=== PATIENT | female | born 1950 | race Caucasian/White ===

== ENCOUNTER 2017-07-16 19:53 | Emergency (ER) | payer MEDICARE, MEDICAID ==
[~2017-07-16] VITALS: Ht 165.1 cm; Wt 68.9 kg
[~2017-07-16 19:53] MED LIST: ASPI81TA31 PO; ATEN50TA PO; Acetaminophen PO; FENO145T PO; GLUC100017 PO; IBUP-1955 PO; LORA0.5T48 PO; MELO15TA13 PO; PRAV20TA4 PO
[2017-07-16] MEDS ORDERED: IBUPROFEN 800 MG TABLET PO ONE (21:45)
[2017-07-16] MEDS ORDERED: IBUPROFEN 800 MG TABLET ONE (21:59)
--- NOTE | 2017-07-16 23:04 | NUR ---
Patient discharged to home in stable conditon. Written and verbal after care instructions given. Patient verbalizes understanding of instructions.
== END 2017-07-16 23:05 | disposition home or self-care (01) ==
LOC: ER 19:53
DX: S39.012A Strain of muscle, fascia and tendon of lower back, initial encounter (principal); S13.4XXA Sprain of ligaments of cervical spine, initial encounter; I10 Essential (primary) hypertension; Z79.82 Long term (current) use of aspirin; V49.50XA Passenger injured in collision with unspecified motor vehicles in traffic accident, initial encounter; Y93.89 Activity, other specified; Y92.413 State road as the place of occurrence of the external cause; Y99.9 Unspecified external cause status
CPT/HCPCS: 70450; 72125; 72131; 99284; A4663

== ENCOUNTER 2019-01-15 12:28 | Emergency (ER) | payer MEDICARE, OTHER ==
[~2019-01-15] VITALS: Ht 165.1 cm; Wt 72.6 kg
--- NOTE | 2019-01-15 12:57 | NUR ---
Dr Jones into eval patient
[2019-01-15 13:53] VITALS: BP 118/90
--- NOTE | 2019-01-15 13:55 | NUR ---
Patient discharged to home in stable conditon with daughter taking patient home. Written and verbal after care instructions given. Patient verbalizes understanding of instructions. Walked out of ER with no distress noted
== END 2019-01-15 13:59 | disposition home or self-care (01) ==
LOC: ER 12:28
DX: J40 Bronchitis, not specified as acute or chronic (principal); I10 Essential (primary) hypertension; Z79.1 Long term (current) use of non-steroidal anti-inflammatories (NSAID); Z79.899 Other long term (current) drug therapy
CPT/HCPCS: 71045; 93005; A4663

== ENCOUNTER 2019-05-25 12:02 | Emergency (ER) | payer MEDICARE, OTHER ==
[~2019-05-25] VITALS: Ht 165.1 cm; Wt 70.8 kg
[2019-05-25] MEDS: IV NORMAL SALINE 500 ML BAG IV ONE (12:30)
[2019-05-25 12:45] LABS: BASOPHILS % (AUTO) 0.4 % (0.0-2.0); EOSINOPHILS # (AUTO) 0.1 K/uL (0.0-0.7); EOSINOPHILS % (AUTO) 1.7 % (0.0-7.0); HEMATOCRIT 35.6 % (31.2-41.9); HEMOGLOBIN 12.1 g/dL (10.9-14.3); LYMPHOCYTES # (AUTO) 1.3 K/uL (20.0-40.0); LYMPHOCYTES % (AUTO) 28.6 % (20.5-51.5); MEAN CORPUSCULAR HEMOGLOBIN 29.4 uug (24.7-32.8); MEAN CORPUSCULAR HGB CONC 34 g/dL (32.3-35.6); MEAN CORPUSCULAR VOLUME 86.9 fL (75.5-95.3); MONOCYTES # (AUTO) 0.2 K/uL (2.0-10.0); MONOCYTES % (AUTO) 5.2 % (0.0-11.0); NEUTROPHILS # (AUTO) 2.9 K/uL (1.8-8.9); NEUTROPHILS % (AUTO) 64.1 % (38.5-71.5); PLATELET COUNT (AUTO) 167 K/uL (179-408); WHITE BLOOD COUNT (AUTO) 4.5 K/uL (3.8-11.8)
[2019-05-25 12:50] LABS: CREATININE 0.7 mg/dL (0.6-1.3); POTASSIUM 3.7 mmol/L (3.5-5.1)
[2019-05-25 13:03] LABS: BILIRUBIN,DIRECT 0.1 mg/dL (0.0-0.2); BILIRUBIN,TOTAL 0.4 mg/dL (0.2-1.0); TOTAL PROTEIN, SERUM 6.6 g/dL (6.4-8.2)
[2019-05-25] MEDS: PANTOPRAZOLE SODIUM 40 MG VIAL IV ONE (13:17)
[2019-05-25] MEDS ORDERED: PANTOPRAZOLE SODIUM 40 MG VIAL ONE (13:19)
[2019-05-25] MEDS ORDERED: DIAZEPAM 5 MG TABLET ONE (13:28)
[2019-05-25] MEDS: DIAZEPAM 2 MG TABLET PO ONE (13:36)
--- NOTE | 2019-05-25 13:36 | NUR ---
IV removed. Catheter intact and site benign. Pressure and 4x4 gauze applied to site. No bleeding noted. Patient discharged to home in stable conditon with steady gait. Written and verbal after care instructions given to patient and mother. Patient & family verbalized understanding & compliance of instructions.
== END 2019-05-25 13:38 | disposition home or self-care (01) ==
LOC: ER 12:02
DX: R07.2 Precordial pain (principal); I10 Essential (primary) hypertension; E78.5 Hyperlipidemia, unspecified; K21.9 Gastro-esophageal reflux disease without esophagitis; F41.9 Anxiety disorder, unspecified; Z79.1 Long term (current) use of non-steroidal anti-inflammatories (NSAID); Z79.82 Long term (current) use of aspirin; Z79.899 Other long term (current) drug therapy
CPT/HCPCS: 36415; 71045; 80048; 80076; 83880; 84484; 85025; 85730; 93005; 96374; 99284; C9113; 70030-TC; A4663; J7040

== ENCOUNTER 2019-09-04 13:05 | Emergency (ER) | payer MEDICARE, OTHER ==
[~2019-09-04] VITALS: Ht 165.1 cm; Wt 69.9 kg
[~2019-09-04 13:05] MED LIST changes: -MELO15TA13 PO
[2019-09-04] MEDS ORDERED: PITA2TAB PO (13:37)
[2019-09-04] MEDS ORDERED: TERI2.4P SUBCUT (13:37)
--- NOTE | 2019-09-04 14:00 | NUR ---
Patient ambulated with stable gait. Speech clear, speaks in complete sentences. No neuro deficits. A/OX4. No acute respiratory distress no cough no sob.
--- NOTE | 2019-09-04 14:07 | NUR ---
ERMD at bedside for MSE
[2019-09-04] MEDS ORDERED: LIDOCAINE VISCUS 2% 15 ML UDC MM ONE (14:45)
[2019-09-04] MEDS ORDERED: LIDOCAINE VISCUS 2% 15 ML UDC ONE (15:03)
[2019-09-04 15:23] VITALS: BP 132/59
== END 2019-09-04 15:24 | disposition home or self-care (01) ==
LOC: ER 13:07
DX: J02.9 Acute pharyngitis, unspecified (principal); K21.9 Gastro-esophageal reflux disease without esophagitis; F41.9 Anxiety disorder, unspecified; I10 Essential (primary) hypertension; E78.5 Hyperlipidemia, unspecified; Z79.82 Long term (current) use of aspirin; Z79.899 Other long term (current) drug therapy
CPT/HCPCS: 70360; 93005; A4663

== ENCOUNTER 2021-05-06 20:22 | Emergency (ER) | payer MEDICARE, OTHER ==
[~2021-05-06] VITALS: Ht 170.2 cm; Wt 72.1 kg
[~2021-05-06 20:22] MED LIST changes: -FENO145T PO; +PITA2TAB PO; -PRAV20TA4 PO; +TERI2.4P SUBCUT
--- NOTE | 2021-05-06 20:30 | NUR ---
Pt ambulated to ER with c/o right shoulder and hip pain s/p fall PL:05/11 1.5 hrs [employer] PILOT. A/O x4, no SOB or labored breathing. Afebrile. Denies CP/pressure. No GI/ distress.
--- NOTE | 2021-05-06 20:35 | NUR ---
Dr. Pierre at bedside, MSE in progress.
[2021-05-06] MEDS ORDERED: ACETAMINOPHEN ES 500 MG TABLET PO ONE (21:00)
[2021-05-06] MEDS ORDERED: CYCLOBENZAPRINE HCL 10 MG TABLET PO ONE (21:00)
--- NOTE | 2021-05-06 21:00 | NUR ---
Xray at bedside.
[2021-05-06] MEDS ORDERED: ACETAMINOPHEN ES 500 MG TABLET ONE (21:01)
[2021-05-06] MEDS ORDERED: CYCLOBENZAPRINE HCL 10 MG TABLET ONE (21:01)
[2021-05-06] MEDS ORDERED: CYCL5TAB PO (22:13)
--- NOTE | 2021-05-06 22:18 | NUR ---
Patient discharged to home in stable condition. A/O x4, no SOB or labored breathing, afebrile. Denies ay pain/discomfort at this time. Written and verbal after care instructions given. Patient verbalizes understanding of instructions. Stressed follow up or return to ER for worsening s/s. Steady gait. Accompanied by grand-daughter.
[2021-05-06 22:19] VITALS: BP 138/77
== END 2021-05-06 22:19 | disposition home or self-care (01) ==
LOC: ER 20:28
DX: S43.401A Unspecified sprain of right shoulder joint, initial encounter (principal); S73.101A Unspecified sprain of right hip, initial encounter; W01.0XXA Fall on same level from slipping, tripping and stumbling without subsequent striking against object, initial encounter; Y93.89 Activity, other specified; Y92.830 Public park as the place of occurrence of the external cause; M19.011 Primary osteoarthritis, right shoulder; Z79.82 Long term (current) use of aspirin; Z79.899 Other long term (current) drug therapy; I10 Essential (primary) hypertension; F41.9 Anxiety disorder, unspecified; M81.0 Age-related osteoporosis without current pathological fracture; K21.9 Gastro-esophageal reflux disease without esophagitis
CPT/HCPCS: 73030; 73502; 73551; A4663; A9150

== ENCOUNTER 2025-07-08 13:50 | Emergency (ER) | payer MEDICARE ==
[~2025-07-08] VITALS: Ht 162.6 cm; Wt 70.8 kg
[~2025-07-08 13:50] MED LIST changes: +ACID1TAB4 PO; +ATEN25TA PO; -ATEN50TA PO; -Acetaminophen PO; +BEMP1TAB PO; +CALC500T52 PO; -GLUC100017 PO; -IBUP-1955 PO; +LEVO500T90 PO; -LORA0.5T48 PO; +MAGN400C PO; +METR500T PO; +PANT40TA2 PO; -PITA2TAB PO; -TERI2.4P SUBCUT
[2025-07-08 13:55] VITALS: BP 131/78
[2025-07-08] MEDS ORDERED: KETOROLAC TROMETHAMINE 30 MG INJ ONE (14:45)
[2025-07-08] MEDS ORDERED: METOCLOPRAMIDE HCL 10 MG/2 ML VIAL ONE (14:45)
[2025-07-08] MEDS ORDERED: diphenhydrAMINE 50 MG/1 ML VIAL ONE (14:45)
[2025-07-08] MEDS: diphenhydrAMINE 50 MG/1 ML VIAL IV ONE (14:46)
[2025-07-08] MEDS: IV NS 1000 ML 1,000 ML IV ONE (14:46)
[2025-07-08] MEDS: KETOROLAC TROMETHAMINE 30 MG INJ IVP ONE (14:48)
[2025-07-08 14:52] LABS: PLATELET COUNT (AUTO) 206 K/uL (179-408); RED BLOOD CELL COUNT(AUTO) 4.11 MIL/uL (3.63-4.92); RED CELL DISTRIBUTION WIDTH 14.4 % (12.3-17.7); WHITE BLOOD COUNT (AUTO) 6.0 K/uL (3.8-11.8)
[2025-07-08] MEDS: METOCLOPRAMIDE HCL 10 MG/2 ML VIAL IV ONE (14:52)
[2025-07-08 14:58] LABS: CREATININE 0.9 mg/dL (0.6-1.3); SODIUM SERUM 142 mmol/L (136-145); UREA NITROGEN, BLOOD 18 mg/dL (7-18)
[2025-07-08 15:29] LABS: ASPARTATE AMINOTRANSFERASE 20.0 U/L (15-37); TOTAL PROTEIN, SERUM 6.9 g/dL (6.4-8.2)
[2025-07-08] MEDS ORDERED: CYANOCOBALAMIN 1000 MCG/ML VIAL ONE (15:50)
[2025-07-08] MEDS: CYANOCOBALAMIN 1000 MCG/ML VIAL IM ONE (15:51)
[2025-07-08] MEDS ORDERED: MAGNESIUM SULFATE/D5W 100 ML ONE (15:55)
[2025-07-08] MEDS: MAGNESIUM SULFATE/D5W 100 ML IV SCH (15:57)
[2025-07-08] MEDS ORDERED: SYRI-29 MC (17:11)
[2025-07-08] MEDS ORDERED: DIPH25CA83 PO (17:11)
[2025-07-08] MEDS ORDERED: NAPR500T6 PO (17:11)
[2025-07-08] MEDS ORDERED: METO-295 PO (17:11)
[2025-07-08] MEDS ORDERED: CYAN10006 IM (17:11)
[2025-07-08 17:34] VITALS: BP 120/78; O2SAT 96
== END 2025-07-08 17:36 | disposition home or self-care (01) ==
LOC: ER 14:02
DX: G43.909 Migraine, unspecified, not intractable, without status migrainosus (principal); E53.8 Deficiency of other specified B group vitamins; E78.5 Hyperlipidemia, unspecified; I10 Essential (primary) hypertension; M81.0 Age-related osteoporosis without current pathological fracture; K21.9 Gastro-esophageal reflux disease without esophagitis; F41.9 Anxiety disorder, unspecified; Z79.82 Long term (current) use of aspirin; Z79.899 Other long term (current) drug therapy; Z88.7 Allergy status to serum and vaccine; Z86.79 Personal history of other diseases of the circulatory system
CPT/HCPCS: 99284; 96365; 96375; 96361; 80076; 80048; 82607; 83735; 85025; 36415; 96372; J1885; J3420; J1200; J3475; J2765; J7040; A4606; A4663